=== PATIENT | female | born 1995 | race Two or more races ===

== ENCOUNTER 2021-04-12 15:58 | Emergency (ER) | payer OTHER ==
[~2021-04-12] VITALS: Ht 160 cm; Wt 82.6 kg
== END 2021-04-12 17:56 | disposition home or self-care (01) ==
LOC: ER 15:58
DX: M94.0 Chondrocostal junction syndrome [Tietze] (principal)

== ENCOUNTER 2021-07-11 23:59 | Emergency (ER) | payer OTHER ==
[~2021-07-11] VITALS: Ht 160 cm; Wt 0.5 kg
== END 2021-07-12 05:10 ==
LOC: ER 23:59
DX: E16.2 Hypoglycemia, unspecified (principal)